=== PATIENT | male | born 1960 | race Caucasian/White ===

== ENCOUNTER 2019-01-24 22:52 | Emergency (ER) | payer OTHER ==
[~2019-01-24] VITALS: Ht 175.3 cm; Wt 91.0 kg
[2019-01-25 01:11] LABS: HEMATOCRIT 44.8 % (39.0-50.0); HEMOGLOBIN 15.6 g/dl (14.0-18.0); IMMATURE GRANULOCYTES 0.5 % (0.0-5.0); MEAN CELL VOLUME 100.9 fL CALC (80.0-100.0); MEAN CORPUSCULAR HGB 35.1 pG CALC (26.0-32.0); MEAN CORPUSCULAR HGB CONC 34.8 g/L CALC (32.0-36.0); NEUT# 5.74 thou/uL (1.82-7.42); RED BLOOD COUNT 4.44 mill/uL (4.70-6.10); RED CELL DISTRI WIDTH 14.7 % (11.5-15.5)
[2019-01-25 01:33] LABS: ALBUMIN 4.7 g/dL (3.2-5.0); ALKALINE PHOSPHATASE 166 u/l (38-126); ANION GAP 16 (6-22 (CALC)); BILIRUBIN, TOTAL 1.4 mg/dL (0.0-1.4); BUN 17 mg/dL (9-20); BUN/CREATININE RATIO 23 (12-20 (CALC)); CARBON DIOXIDE 26 mmol/l (22-30); CHLORIDE 100 mmol/l (95-108); CREATININE 0.7 mg/dL (0.7-1.3); GFR > 60 ML/MIN (>=60 (CALC)); GFR FOR AFR.AMER. > 60 ML/MIN (>=60 (CALC)); MAGNESIUM 1.1 mg/dL (1.6-2.3); POTASSIUM 3.9 mmol/l (3.5-5.1); SGOT/AST 117 u/l (17-59); SODIUM 138 mmol/l (137-146)
[2019-01-25 01:44] LABS: MYOGLOBIN 51 ng/mL (0 - 121)
[2019-01-25 02:03] LABS: TSH, 3RD GENERATION 1.38 uIU/mL (0.47 - 4.68)
[2019-01-25 02:32] VITALS: BP 140/100
== END 2019-01-25 02:35 | disposition home or self-care (01) | DRG 93 ==
LOC: ED 22:52
PROVIDERS: Family Medicine
DX: R25.9 Unspecified abnormal involuntary movements (principal); R42 Dizziness and giddiness; R06.00 Dyspnea, unspecified; T49.6X5A Adverse effect of otorhinolaryngological drugs and preparations, initial encounter; I10 Essential (primary) hypertension; F17.210 Nicotine dependence, cigarettes, uncomplicated

== ENCOUNTER 2019-02-23 13:36 | Emergency (ER) | payer SELFPAY ==
[~2019-02-23] VITALS: Ht 175.3 cm; Wt 95.0 kg
[2019-02-23 14:16] LABS: HEMATOCRIT 40.9 % (39.0-50.0); HEMOGLOBIN 15.7 g/dl (14.0-18.0); IMMATURE GRANULOCYTES 0.3 % (0.0-5.0); MEAN CELL VOLUME 100.7 fL CALC (80.0-100.0); MEAN CORPUSCULAR HGB 38.7 pG CALC (26.0-32.0); MEAN CORPUSCULAR HGB CONC 38.4 g/L CALC (32.0-36.0); NEUT# 3.13 thou/uL (1.82-7.42); RED BLOOD COUNT 4.06 mill/uL (4.70-6.10); RED CELL DISTRI WIDTH 15.1 % (11.5-15.5)
[2019-02-23 14:30] LABS: BILIRUBIN, TOTAL 1.3 mg/dL (0.0-1.4); BUN 16 mg/dL (9-20); BUN/CREATININE RATIO 21 (12-20 (CALC)); CHLORIDE 105 mmol/l (95-108); CREATININE 0.7 mg/dL (0.7-1.3); GFR > 60 ML/MIN (>=60 (CALC)); GFR FOR AFR.AMER. > 60 ML/MIN (>=60 (CALC)); LIPASE 103 u/l (23-300); POTASSIUM 4.5 mmol/l (3.5-5.1); SODIUM 138 mmol/l (137-146); TOTAL PROTEIN 7.1 g/dL (6.3-8.2)
[2019-02-23 14:33] LABS: ALBUMIN 3.6 g/dL (3.2-5.0); ALKALINE PHOSPHATASE 284 u/l (38-126); ANION GAP 19 (6-22 (CALC)); CARBON DIOXIDE 19 mmol/l (22-30); SGOT/AST 496 u/l (17-59)
[2019-02-23 15:59] LABS: URINE BILIRUBIN - DIPSTICK NEGATIVE (NEGATIVE); URINE BLOOD DIPSTICK NEGATIVE (NEGATIVE); URINE COLOR YELLOW; URINE GLUCOSE - DIPSTICK NEGATIVE (NEGATIVE); URINE KETONE NEGATIVE (NEGATIVE); URINE LEUK ESTERASE NEGATIVE (NEGATIVE); URINE NITRITE - DIPSTICK NEGATIVE (Negative); URINE PROTEIN - DIPSTICK NEGATIVE (NEG-TRACE); URINE UROBILINOGEN - DIPSTICK 0.2 E.U./dL (0.2)
[2019-02-23] MEDS ORDERED: ONDANSETRON4 MG PO (16:41)
[2019-02-23 16:49] VITALS: BP 160/107
[2019-02-23] MEDS ORDERED: ZPAK PO (16:49)
== END 2019-02-23 16:59 | disposition home or self-care (01) | DRG 153 ==
LOC: ED 13:36
PROVIDERS: Family Medicine
DX: J06.9 Acute upper respiratory infection, unspecified (principal); K52.9 Noninfective gastroenteritis and colitis, unspecified; R79.89 Other specified abnormal findings of blood chemistry; R19.5 Other fecal abnormalities; I10 Essential (primary) hypertension; F17.200 Nicotine dependence, unspecified, uncomplicated

== ENCOUNTER 2019-03-06 08:59 | Emergency (ER) | payer SELFPAY ==
[~2019-03-06] VITALS: Ht 175.3 cm; Wt 90.0 kg
[~2019-03-06 08:59] MED LIST: ONDANSETRON4 MG PO; ZPAK PO
[2019-03-06 10:30] LABS: ALBUMIN 3.1 g/dL (3.2-5.0); ANION GAP 22 (6-22 (CALC)); BUN 12 mg/dL (9-20); BUN/CREATININE RATIO 15 (12-20 (CALC)); CARBON DIOXIDE 19 mmol/l (22-30); CHLORIDE 99 mmol/l (95-108); CREATININE 0.8 mg/dL (0.7-1.3); ETHYL ALCOHOL 74 mg/dl (0-30); GFR > 60 ML/MIN (>=60 (CALC)); GFR FOR AFR.AMER. > 60 ML/MIN (>=60 (CALC)); POTASSIUM 3.7 mmol/l (3.5-5.1); SGOT/AST 339 u/l (17-59); SODIUM 136 mmol/l (137-146); TOTAL PROTEIN 6.4 g/dL (6.3-8.2)
[2019-03-06 10:37] LABS: ALKALINE PHOSPHATASE 700 u/l (38-126); BILIRUBIN, TOTAL 4.3 mg/dL (0.0-1.4); IMMATURE GRANULOCYTES 0.7 % (0.0-5.0); MEAN CELL VOLUME 101.2 fL CALC (80.0-100.0); MEAN CORPUSCULAR HGB 36.7 pG CALC (26.0-32.0); MEAN CORPUSCULAR HGB CONC 36.2 g/L CALC (32.0-36.0); NEUT# 5.24 thou/uL (1.82-7.42); RED BLOOD COUNT 3.3 mill/uL (4.70-6.10); RED CELL DISTRI WIDTH 15.9 % (11.5-15.5)
[2019-03-06 10:42] LABS: HEMATOCRIT 33.4 % (39.0-50.0); HEMOGLOBIN 12.1 g/dl (14.0-18.0)
[2019-03-06 13:44] LABS: URINE BLOOD DIPSTICK NEGATIVE (NEGATIVE); URINE GLUCOSE - DIPSTICK NEGATIVE (NEGATIVE); URINE KETONE 15 mg/dL (NEGATIVE); URINE LEUK ESTERASE NEGATIVE (NEGATIVE); URINE PROTEIN - DIPSTICK 30 mg/dL (NEG-TRACE); URINE SPECIFIC GRAVITY >=1.030
[2019-03-06 13:48] LABS: BARBITURATES NEGATIVE (NEGATIVE); COCAINE NEGATIVE (NEGATIVE); METHADONE NEGATIVE (NEGATIVE); OXCYCODONE NEGATIVE (NEGATIVE); TETRAHYDROCANNABIONOL NEGATIVE (NEGATIVE); TRICYLIC ANTIDEPRESSANTS NEGATIVE (NEGATIVE)
[2019-03-06 13:50] LABS: URINE BILIRUBIN - DIPSTICK LARGE (NEGATIVE); URINE NITRITE - DIPSTICK POSITIVE (Negative)
[2019-03-06 13:51] LABS: URINE COLOR AMBER
[2019-03-06 13:52] LABS: URINE BACTERIA RARE hpf; URINE RBC 0-2 RBC/hpf (0-5); URINE WBC 0-2 WBC/hpf (0-5)
[2019-03-06 18:15] VITALS: BP 138/66
== END 2019-03-06 18:15 | disposition short-term general hospital (02) | DRG 377 ==
LOC: ED 08:59 → ED-I 09:23 → ED 09:23 → ED-I 12:07 → ED 18:15
PROVIDERS: Emergency Medicine
DX: K92.2 Gastrointestinal hemorrhage, unspecified (principal); K85.90 Acute pancreatitis without necrosis or infection, unspecified; K70.30 Alcoholic cirrhosis of liver without ascites; F10.220 Alcohol dependence with intoxication, uncomplicated; Y90.3 Blood alcohol level of 60-79 mg/100 ml; D50.0 Iron deficiency anemia secondary to blood loss (chronic); T40.605A Adverse effect of unspecified narcotics, initial encounter; Y92.009 Unspecified place in unspecified non-institutional (private) residence as the place of occurrence of the external cause; R51 Headache
CPT/HCPCS: S0164

== ENCOUNTER 2019-11-02 | Emergency (ER) | payer MEDICAID ==
[2019-11-02 14:48] LABS: IMMATURE GRANULOCYTES 0.2 % (0.0-5.0); MEAN CORPUSCULAR HGB 33.3 pG CALC (26.0-32.0); MEAN CORPUSCULAR HGB CONC 35.2 g/L CALC (32.0-36.0); NEUT# 6.42 thou/uL (1.82-7.42); RED BLOOD COUNT 4.8 mill/uL (4.70-6.10); RED CELL DISTRI WIDTH 13.3 % (11.5-15.5)
[2019-11-02 14:51] LABS: HEMATOCRIT 45.4 % (39.0-50.0); MEAN CELL VOLUME 94.6 fL CALC (80.0-100.0)
[2019-11-02 15:25] LABS: ALBUMIN 4.3 g/dL (3.2-5.0); ALKALINE PHOSPHATASE 92 u/l (38-126); ANION GAP 15 (6-22 (CALC)); BILIRUBIN, TOTAL 0.5 mg/dL (0.0-1.4); BUN 17 mg/dL (9-20); BUN/CREATININE RATIO 24 (12-20 (CALC)); CARBON DIOXIDE 23 mmol/l (22-30); CHLORIDE 103 mmol/l (95-108); CREATININE 0.7 mg/dL (0.7-1.3); GFR > 60 ML/MIN (>=60 (CALC)); GFR FOR AFR.AMER. > 60 ML/MIN (>=60 (CALC)); LIPASE 39 u/l (23-300); POTASSIUM 4.3 mmol/l (3.5-5.1); SGOT/AST 36 u/l (17-59); SODIUM 137 mmol/l (137-146); TOTAL PROTEIN 7.6 g/dL (6.3-8.2)
[2019-11-02 16:19] LABS: TSH, 3RD GENERATION 1.27 uIU/mL (0.47 - 4.68)
[2019-11-02 16:22] LABS: URINE BILIRUBIN - DIPSTICK NEGATIVE (NEGATIVE); URINE BLOOD DIPSTICK NEGATIVE (NEGATIVE); URINE CLARITY CLEAR; URINE COLOR YELLOW; URINE GLUCOSE - DIPSTICK NEGATIVE (NEGATIVE); URINE KETONE NEGATIVE (NEGATIVE); URINE LEUK ESTERASE NEGATIVE (Negative); URINE NITRITE - DIPSTICK NEGATIVE (Negative); URINE PROTEIN - DIPSTICK TRACE mg/dL (NEG-TRACE); URINE UROBILINOGEN - DIPSTICK 0.2 E.U./dL (0.2)
[2019-11-02 16:23] LABS: BARBITURATES NEGATIVE (NEGATIVE); COCAINE NEGATIVE (NEGATIVE); METHADONE NEGATIVE (NEGATIVE); OXCYCODONE NEGATIVE (NEGATIVE); TETRAHYDROCANNABIONOL NEGATIVE (NEGATIVE); TRICYLIC ANTIDEPRESSANTS NEGATIVE (NEGATIVE)
[2019-11-02] MEDS ORDERED: ZOFRAN4 MG PO (18:29)
[2019-11-02] MEDS ORDERED: KLONOPIN1 MG PO (18:29)
== END 2019-11-02 18:50 | disposition home or self-care (01) ==
PROVIDERS: Emergency Medicine
DX: K52.9 Noninfective gastroenteritis and colitis, unspecified (principal); F41.9 Anxiety disorder, unspecified; I10 Essential (primary) hypertension; F17.210 Nicotine dependence, cigarettes, uncomplicated
CPT/HCPCS: J2060

== ENCOUNTER 2020-02-24 10:43 | Emergency (ER) | payer MEDICAID ==
[~2020-02-24 10:43] MED LIST changes: +KLONOPIN1 MG PO; +ZOFRAN4 MG PO
[2020-02-24] MEDS ORDERED: ZESTRIL10 M1 PO (11:20)
[2020-02-24] MEDS ORDERED: CRESTOR5 M1 PO (11:21)
[2020-02-24 12:07] LABS: URINE BLOOD DIPSTICK NEGATIVE (NEGATIVE); URINE COLOR YELLOW; URINE GLUCOSE - DIPSTICK NEGATIVE (NEGATIVE); URINE KETONE 15 mg/dL (NEGATIVE); URINE LEUK ESTERASE NEGATIVE (NEGATIVE); URINE PH 5.5 (4.5-8.0); URINE PROTEIN - DIPSTICK TRACE mg/dL (NEG-TRACE); URINE SPECIFIC GRAVITY >=1.030; URINE UROBILINOGEN - DIPSTICK 0.2 E.U./dL (0.2)
[2020-02-24 12:16] LABS: URINE BILIRUBIN - DIPSTICK MODERATE (NEGATIVE); URINE NITRITE - DIPSTICK POSITIVE (Negative)
[2020-02-24 12:18] LABS: HEMATOCRIT 41.1 % (39.0-50.0); HEMOGLOBIN 16.7 g/dl (14.0-18.0); IMMATURE GRANULOCYTES 0.5 % (0.0-5.0); MEAN CELL VOLUME 94.1 fL CALC (80.0-100.0); MEAN CORPUSCULAR HGB 38.2 pG CALC (26.0-32.0); MEAN CORPUSCULAR HGB CONC 40.6 g/dL CAL (32.0-36.0); NEUT# 6.61 thou/uL (1.82-7.42); RED BLOOD COUNT 4.37 mill/uL (4.70-6.10); RED CELL DISTRI WIDTH 16.9 % (11.5-15.5)
[2020-02-24 12:24] LABS: BUN 14 mg/dL (9-20); BUN/CREATININE RATIO 14 (12-20 (CALC)); CHLORIDE 97 mmol/l (95-108); GFR > 60 ML/MIN (>=60 (CALC)); GFR FOR AFR.AMER. > 60 ML/MIN (>=60 (CALC)); TOTAL PROTEIN 7.1 g/dL (6.3-8.2)
[2020-02-24 12:26] LABS: ALBUMIN 3.3 g/dL (3.2-5.0); ALKALINE PHOSPHATASE 326 u/l (38-126); ANION GAP 18 (6-22 (CALC)); BILIRUBIN, TOTAL 1.9 mg/dL (0.0-1.4); CARBON DIOXIDE 16 mmol/l (22-30); SGOT/AST 219 u/l (17-59); SODIUM 127 mmol/l (137-146)
[2020-02-24 12:38] LABS: URINE BACTERIA FEW hpf; URINE SQUAMOUS EPITHELIAL CELL FEW EPI/hpf (0-FEW)
[2020-02-24 14:40] LABS: AMYLASE 59 u/l (30-110); LIPASE 337 u/l (23-300)
[2020-02-24] MEDS ORDERED: ZOFRAN4 MG/TAB PO ×2 (15:00)
[2020-02-24] MEDS ORDERED: DICYCLOMINE10 MG PO ×2 (15:00)
[2020-02-24] MEDS ORDERED: CRESTOR5 MG PO ×2 (15:09)
[2020-02-24 15:18] VITALS: BP 135/79
== END 2020-02-24 15:28 | disposition home or self-care (01) ==
LOC: ED 10:43
PROVIDERS: Student in an Organized Health Care Education/Training Program
DX: R10.31 Right lower quadrant pain (principal); R10.32 Left lower quadrant pain; R74.0 Nonspecific elevation of levels of transaminase and lactic acid dehydrogenase [LDH]; E78.5 Hyperlipidemia, unspecified; I10 Essential (primary) hypertension; F17.210 Nicotine dependence, cigarettes, uncomplicated; T46.6X6A Underdosing of antihyperlipidemic and antiarteriosclerotic drugs, initial encounter; Z91.128 Patient's intentional underdosing of medication regimen for other reason; Z20.828 Contact with and (suspected) exposure to other viral communicable diseases
CPT/HCPCS: Q9967

== ENCOUNTER 2020-03-13 13:15 | Emergency (ER) | payer MEDICAID ==
[~2020-03-13] VITALS: Ht 175.3 cm; Wt 92.0 kg
[~2020-03-13 13:15] MED LIST changes: +CRESTOR5 M1 PO; +CRESTOR5 MG PO; +DICYCLOMINE10 MG PO; +ZESTRIL10 M1 PO; +ZOFRAN4 MG/TAB PO
[2020-03-13 15:16] LABS: HEMOGLOBIN 15.8 g/dl (14.0-18.0); IMMATURE GRANULOCYTES 0.6 % (0.0-5.0); MEAN CELL VOLUME 96.6 fL CALC (80.0-100.0); MEAN CORPUSCULAR HGB 41.3 pG CALC (26.0-32.0); MEAN CORPUSCULAR HGB CONC 42.7 g/dL CAL (32.0-36.0); NEUT# 2.87 thou/uL (1.82-7.42); RED BLOOD COUNT 3.83 mill/uL (4.70-6.10); RED CELL DISTRI WIDTH 17.4 % (11.5-15.5)
[2020-03-13 15:32] LABS: ALKALINE PHOSPHATASE 466 u/l (38-126); ANION GAP 18 (6-22 (CALC)); BILIRUBIN, TOTAL 1.3 mg/dL (0.0-1.4); BUN 15 mg/dL (9-20); BUN/CREATININE RATIO 18 (12-20 (CALC)); CARBON DIOXIDE 15 mmol/l (22-30); CHLORIDE 103 mmol/l (95-108); CREATININE 0.9 mg/dL (0.7-1.3); GFR > 60 ML/MIN (>=60 (CALC)); GFR FOR AFR.AMER. > 60 ML/MIN (>=60 (CALC)); POTASSIUM 4.6 mmol/l (3.5-5.1); SGOT/AST 236 u/l (17-59); SODIUM 131 mmol/l (137-146); TOTAL PROTEIN 6.9 g/dL (6.3-8.2)
[2020-03-13 15:38] LABS: LIPASE 173 u/l (23-300)
[2020-03-13] MEDS ORDERED: PREDNISONE50 MG PO ×2 (17:42)
[2020-03-13] MEDS ORDERED: ZPAK PO (17:42)
[2020-03-13] MEDS ORDERED: PROAIR HFA108 MCG/AC PO ×2 (17:42)
[2020-03-13 18:00] VITALS: BP 139/79
== END 2020-03-13 18:40 | disposition home or self-care (01) ==
LOC: ED 13:15
PROVIDERS: Family Medicine
DX: J40 Bronchitis, not specified as acute or chronic (principal); I10 Essential (primary) hypertension; F17.210 Nicotine dependence, cigarettes, uncomplicated; Z20.828 Contact with and (suspected) exposure to other viral communicable diseases

== ENCOUNTER 2020-06-24 10:07 | Emergency (ER) | payer MEDICAID ==
[~2020-06-24] VITALS: Ht 175.3 cm; Wt 75.0 kg
[~2020-06-24 10:07] MED LIST changes: +PREDNISONE50 MG PO; +PROAIR HFA108 MCG/AC PO
[2020-06-24 10:42] LABS: HEMATOCRIT 42.4 % (39.0-50.0); HEMOGLOBIN 14.3 g/dl (14.0-18.0); MEAN CELL VOLUME 106.5 fL CALC (80.0-100.0); MEAN CORPUSCULAR HGB 35.9 pG CALC (26.0-32.0); MEAN CORPUSCULAR HGB CONC 33.7 g/dL CAL (32.0-36.0); NEUT# 6.4 thou/uL (1.82-7.42); RED BLOOD COUNT 3.98 mill/uL (4.70-6.10); RED CELL DISTRI WIDTH 13.8 % (11.5-15.5)
[2020-06-24 10:54] LABS: ALBUMIN 3.7 g/dL (3.2-5.0); ALKALINE PHOSPHATASE 277 u/l (38-126); ANION GAP 12 (6-22 (CALC)); BILIRUBIN, TOTAL 1.1 mg/dL (0.0-1.4); BUN 6 mg/dL (9-20); BUN/CREATININE RATIO 9 (12-20 (CALC)); CARBON DIOXIDE 29 mmol/l (22-30); CHLORIDE 97 mmol/l (95-108); CREATININE 0.8 mg/dL (0.7-1.3); GFR > 60 ML/MIN (>=60 (CALC)); GFR FOR AFR.AMER. > 60 ML/MIN (>=60 (CALC)); LIPASE 205 u/l (23-300); SGOT/AST 60 u/l (17-59); SODIUM 134 mmol/l (137-146); TOTAL PROTEIN 6.8 g/dL (6.3-8.2)
[2020-06-24 11:03] LABS: PROTHROMBIN TIME 10.3 SECONDS (9.0-12.5)
[2020-06-24 13:00] VITALS: BP 117/69
== END 2020-06-24 13:09 | disposition short-term general hospital (02) ==
LOC: ED 10:07
PROVIDERS: Student in an Organized Health Care Education/Training Program
DX: K65.1 Peritoneal abscess (principal); R07.9 Chest pain, unspecified; I10 Essential (primary) hypertension; F41.9 Anxiety disorder, unspecified; E78.00 Pure hypercholesterolemia, unspecified; F17.210 Nicotine dependence, cigarettes, uncomplicated
CPT/HCPCS: Q9967

== ENCOUNTER 2020-11-05 12:05 | Emergency (ER) | payer MEDICAID ==
[~2020-11-05] VITALS: Ht 175.3 cm; Wt 150.0 kg
[2020-11-05 14:52] LABS: IMMATURE GRANULOCYTES 0.5 % (0.0-5.0); MEAN CORPUSCULAR HGB 33.2 pG CALC (26.0-32.0); MEAN CORPUSCULAR HGB CONC 33.6 g/dL CAL (32.0-36.0); NEUT# 10.8 thou/uL (1.82-7.42); RED BLOOD COUNT 4.97 mill/uL (4.70-6.10); RED CELL DISTRI WIDTH 14.6 % (11.5-15.5)
[2020-11-05 14:53] LABS: HEMATOCRIT 49.1 % (39.0-50.0); HEMOGLOBIN 16.5 g/dl (14.0-18.0); MEAN CELL VOLUME 98.8 fL CALC (80.0-100.0)
[2020-11-05 15:14] LABS: ALBUMIN 4.1 g/dL (3.2-5.0); ANION GAP 11 (6-22 (CALC)); BILIRUBIN, TOTAL 1.5 mg/dL (0.0-1.4); BUN 8 mg/dL (9-20); BUN/CREATININE RATIO 11 (12-20 (CALC)); CARBON DIOXIDE 29 mmol/l (22-30); CHLORIDE 96 mmol/l (95-108); CREATININE 0.8 mg/dL (0.7-1.3); GFR > 60 ML/MIN (>=60 (CALC)); GFR FOR AFR.AMER. > 60 ML/MIN (>=60 (CALC)); POTASSIUM 3.9 mmol/l (3.5-5.1); SGOT/AST 38 u/l (17-59); SODIUM 132 mmol/l (137-146); TOTAL PROTEIN 7.6 g/dL (6.3-8.2)
[2020-11-05 15:17] LABS: ALKALINE PHOSPHATASE 102 u/l (38-126)
[2020-11-05] MEDS ORDERED: HYDROCO/APAP1 TA9 PO (17:08)
[2020-11-05] MEDS ORDERED: MOTRIN400 MG/TAB PO (17:08)
[2020-11-05] MEDS ORDERED: ZOFRAN4 M1 PO (17:08)
[2020-11-05 17:40] VITALS: BP 131/78
== END 2020-11-05 17:49 | disposition left against medical advice (07) ==
LOC: ED 12:05
PROVIDERS: Family Medicine
DX: R07.9 Chest pain, unspecified (principal); R10.12 Left upper quadrant pain; R10.13 Epigastric pain; I10 Essential (primary) hypertension; F41.9 Anxiety disorder, unspecified; E78.00 Pure hypercholesterolemia, unspecified; F17.200 Nicotine dependence, unspecified, uncomplicated; Z91.19 Patient's noncompliance with other medical treatment and regimen; Z20.822 Contact with and (suspected) exposure to COVID-19
CPT/HCPCS: Q9967

== ENCOUNTER 2020-11-15 17:32 | Emergency (ER) | payer MEDICAID ==
[~2020-11-15] VITALS: Ht 175.3 cm; Wt 100.0 kg
[~2020-11-15 17:32] MED LIST changes: +HYDROCO/APAP1 TA9 PO; +MOTRIN400 MG/TAB PO; +ZOFRAN4 M1 PO
[2020-11-15 19:04] LABS: HEMATOCRIT 47.2 % (39.0-50.0); IMMATURE GRANULOCYTES 0.5 % (0.0-5.0); MEAN CELL VOLUME 99.2 fL CALC (80.0-100.0); MEAN CORPUSCULAR HGB 33.6 pG CALC (26.0-32.0); MEAN CORPUSCULAR HGB CONC 33.9 g/dL CAL (32.0-36.0); NEUT# 10.22 thou/uL (1.82-7.42); RED BLOOD COUNT 4.76 mill/uL (4.70-6.10); RED CELL DISTRI WIDTH 14.2 % (11.5-15.5)
[2020-11-15 19:16] LABS: ALBUMIN 3.8 g/dL (3.2-5.0); ALKALINE PHOSPHATASE 101 u/l (38-126); AMYLASE 92 u/l (30-110); ANION GAP 10 (6-22 (CALC)); BUN 7 mg/dL (9-20); BUN/CREATININE RATIO 12 (12-20 (CALC)); CARBON DIOXIDE 30 mmol/l (22-30); CHLORIDE 97 mmol/l (95-108); CREATININE 0.6 mg/dL (0.7-1.3); GFR > 60 ML/MIN (>=60 (CALC)); GFR FOR AFR.AMER. > 60 ML/MIN (>=60 (CALC)); LIPASE 559 u/l (23-300); POTASSIUM 3.4 mmol/l (3.5-5.1); SGOT/AST 33 u/l (17-59); SODIUM 134 mmol/l (137-146); TOTAL PROTEIN 7.1 g/dL (6.3-8.2)
[2020-11-15 19:29] LABS: BILIRUBIN, TOTAL 0.8 mg/dL (0.0-1.4)
[2020-11-15] MEDS ORDERED: LORTAB5 PO (21:09)
[2020-11-15] MEDS ORDERED: PROTONIX40 M2 PO (21:09)
[2020-11-15 21:25] VITALS: BP 148/80
== END 2020-11-15 21:25 | disposition home or self-care (01) ==
LOC: ED 17:32
PROVIDERS: Student in an Organized Health Care Education/Training Program
DX: K85.90 Acute pancreatitis without necrosis or infection, unspecified (principal); K29.70 Gastritis, unspecified, without bleeding; I10 Essential (primary) hypertension; F41.9 Anxiety disorder, unspecified; E78.00 Pure hypercholesterolemia, unspecified; F17.200 Nicotine dependence, unspecified, uncomplicated
CPT/HCPCS: Q9967; S0164

== ENCOUNTER 2020-12-31 12:06 | Emergency (ER) | payer MEDICAID ==
[~2020-12-31 12:06] MED LIST changes: +LORTAB5 PO; +PROTONIX40 M2 PO
[2020-12-31 12:55] LABS: HEMATOCRIT 44.7 % (39.0-50.0); HEMOGLOBIN 15.1 g/dl (14.0-18.0); IMMATURE GRANULOCYTES 0.6 % (0.0-5.0); MEAN CORPUSCULAR HGB 34.8 pG CALC (26.0-32.0); MEAN CORPUSCULAR HGB CONC 33.8 g/dL CAL (32.0-36.0); NEUT# 5.54 thou/uL (1.82-7.42); RED BLOOD COUNT 4.34 mill/uL (4.70-6.10); RED CELL DISTRI WIDTH 17.1 % (11.5-15.5)
[2020-12-31 13:16] LABS: ALBUMIN 4.2 g/dL (3.2-5.0); ALKALINE PHOSPHATASE 135 u/l (38-126); ANION GAP 16 (6-22 (CALC)); BILIRUBIN, TOTAL 1.1 mg/dL (0.0-1.4); BUN 8 mg/dL (9-20); BUN/CREATININE RATIO 10 (12-20 (CALC)); CARBON DIOXIDE 25 mmol/l (22-30); CHLORIDE 100 mmol/l (95-108); CREATININE 0.8 mg/dL (0.7-1.3); GFR > 60 ML/MIN (>=60 (CALC)); GFR FOR AFR.AMER. > 60 ML/MIN (>=60 (CALC)); POTASSIUM 3.8 mmol/l (3.5-5.1); SODIUM 137 mmol/l (137-146); TOTAL PROTEIN 7.5 g/dL (6.3-8.2)
[2020-12-31 13:17] LABS: SGOT/AST 101 u/l (17-59)
[2020-12-31 13:57] LABS: URINE BILIRUBIN - DIPSTICK NEGATIVE (NEGATIVE); URINE BLOOD DIPSTICK NEGATIVE (NEGATIVE); URINE COLOR YELLOW; URINE GLUCOSE - DIPSTICK NEGATIVE (NEGATIVE); URINE KETONE 15 mg/dL (NEGATIVE); URINE LEUK ESTERASE NEGATIVE (NEGATIVE); URINE NITRITE - DIPSTICK NEGATIVE (Negative); URINE PROTEIN - DIPSTICK NEGATIVE (NEG-TRACE); URINE SPECIFIC GRAVITY 1.025; URINE UROBILINOGEN - DIPSTICK 0.2 E.U./dL (0.2)
[2020-12-31] MEDS ORDERED: ZOFRAN4 MG/TAB PO (14:41)
[2020-12-31] MEDS ORDERED: ATIVAN0.5 MG PO (17:22)
[2020-12-31] MEDS ORDERED: ERYTHROMYCIN O3.5 GM IO (17:22)
[2020-12-31 17:39] VITALS: BP 168/93
== END 2020-12-31 17:52 | disposition home or self-care (01) ==
LOC: ED 12:06
PROVIDERS: Emergency Medicine
DX: J06.9 Acute upper respiratory infection, unspecified (principal); R11.2 Nausea with vomiting, unspecified; S05.01XA Injury of conjunctiva and corneal abrasion without foreign body, right eye, initial encounter; R25.3 Fasciculation; I10 Essential (primary) hypertension; F41.9 Anxiety disorder, unspecified; E78.00 Pure hypercholesterolemia, unspecified; F17.210 Nicotine dependence, cigarettes, uncomplicated; X58.XXXA Exposure to other specified factors, initial encounter; Z20.822 Contact with and (suspected) exposure to COVID-19
CPT/HCPCS: J2060

== ENCOUNTER 2021-01-08 | Observation (INO) | payer MEDICAID ==
[2021-01-08] VITALS (9 sets, daily range): BP systolic 83–177; BP diastolic 46–82
[~2021-01-08] MED LIST changes: +ATIVAN0.5 MG PO; +ERYTHROMYCIN O3.5 GM IO
[2021-01-08] MEDS ORDERED: CELECOXIB200 MG PO (12:07)
[2021-01-08] MEDS ORDERED: ZITHROMAX250 MG PO (12:09)
[2021-01-08] MEDS ORDERED: PROAIR HFA108 MCG/AC (12:10)
[2021-01-08] MEDS ORDERED: ALBUTEROL SUL0.083 % IN (12:11)
[2021-01-08] MEDS ORDERED: OMEPRAZOLE DR40 MG PO (12:12)
[2021-01-08 12:24] LABS: HEMATOCRIT 44.5 % (39.0-50.0); HEMOGLOBIN 15.6 g/dl (14.0-18.0); IMMATURE GRANULOCYTES 0.5 % (0.0-5.0); MEAN CELL VOLUME 101.6 fL CALC (80.0-100.0); MEAN CORPUSCULAR HGB 35.6 pG CALC (26.0-32.0); MEAN CORPUSCULAR HGB CONC 35.1 g/dL CAL (32.0-36.0); NEUT# 5.51 thou/uL (1.82-7.42); RED BLOOD COUNT 4.38 mill/uL (4.70-6.10); RED CELL DISTRI WIDTH 17.4 % (11.5-15.5)
[2021-01-08 12:37] LABS: ALBUMIN 4.8 g/dL (3.2-5.0); ALKALINE PHOSPHATASE 123 u/l (38-126); AMYLASE 47 u/l (30-110); ANION GAP 22 (6-22 (CALC)); BILIRUBIN, TOTAL 1.5 mg/dL (0.0-1.4); BUN 14 mg/dL (9-20); BUN/CREATININE RATIO 10 (12-20 (CALC)); CARBON DIOXIDE 21 mmol/l (22-30); CHLORIDE 90 mmol/l (95-108); CREATININE 1.4 mg/dL (0.7-1.3); ETHYL ALCOHOL 43 mg/dl (0-30); GFR 52 ML/MIN (>=60 (CALC)); GFR FOR AFR.AMER. > 60 ML/MIN (>=60 (CALC)); INTERNATIONAL NORMALIZED RATIO 1.1 RATIO (0.7-1.3); LIPASE 72 u/l (23-300); POTASSIUM 3.8 mmol/l (3.5-5.1); SGOT/AST 94 u/l (17-59); TOTAL PROTEIN 8.4 g/dL (6.3-8.2)
[2021-01-08 12:38] LABS: SODIUM 129 mmol/l (137-146)
[2021-01-08 14:22] LABS: URINE COLOR YELLOW; URINE GLUCOSE - DIPSTICK NEGATIVE (NEGATIVE); URINE KETONE 40 mg/dL (NEGATIVE); URINE LEUK ESTERASE NEGATIVE (NEGATIVE); URINE PH 5.5 (4.5-8.0); URINE PROTEIN - DIPSTICK TRACE mg/dL (NEG-TRACE)
[2021-01-08 14:29] LABS: URINE BILIRUBIN - DIPSTICK NEGATIVE (NEGATIVE); URINE NITRITE - DIPSTICK NEGATIVE (Negative)
[2021-01-08 14:30] LABS: URINE BLOOD DIPSTICK NEGATIVE (NEGATIVE)
[2021-01-08] MEDS ORDERED: HYDROCODONE BIT10 MG PO (18:04)
[2021-01-09] VITALS (9 sets, daily range): BP systolic 90–139; BP diastolic 51–83
[2021-01-09 06:27] LABS: IMMATURE GRANULOCYTES 0.3 % (0.0-5.0); MEAN CELL VOLUME 104.4 fL CALC (80.0-100.0); MEAN CORPUSCULAR HGB 35.5 pG CALC (26.0-32.0); NEUT# 6.33 thou/uL (1.82-7.42); RED BLOOD COUNT 3.83 mill/uL (4.70-6.10); RED CELL DISTRI WIDTH 17.6 % (11.5-15.5)
[2021-01-09 06:28] LABS: HEMOGLOBIN 13.6 g/dl (14.0-18.0)
[2021-01-09 06:41] LABS: ALKALINE PHOSPHATASE 103 u/l (38-126); BILIRUBIN, TOTAL 1.3 mg/dL (0.0-1.4); BUN 18 mg/dL (9-20); BUN/CREATININE RATIO 22 (12-20 (CALC)); CALCULATED LDLCHOLESTEROL 100 mg/dL (62-129 (CALC)); CARBON DIOXIDE 24 mmol/l (22-30); CHLORIDE 98 mmol/l (95-108); CHOLESTEROL HDL RATIO 2.2 (<4.4 (CALC)); CREATININE 0.8 mg/dL (0.7-1.3); GFR > 60 ML/MIN (>=60 (CALC)); GFR FOR AFR.AMER. > 60 ML/MIN (>=60 (CALC)); HDL CHOLESTEROL 102 mg/dL (>=40); SGOT/AST 75 u/l (17-59); SODIUM 130 mmol/l (137-146); TOTAL CHOLESTEROL 222 mg/dl (0-199); TOTAL TRIGLYCERIDES 102 mg/dl (30-149); VLDL CHOLESTROL 20 mg/dl (8-62 (CALC))
[2021-01-09 06:47] LABS: ALBUMIN 3.7 g/dL (3.2-5.0); ANION GAP 13 (6-22 (CALC)); MAGNESIUM 1.4 mg/dL (1.6-2.3); POTASSIUM 4.9 mmol/l (3.5-5.1); TOTAL PROTEIN 6.5 g/dL (6.3-8.2)
[2021-01-10] VITALS (7 sets, daily range): BP systolic 90–144; BP diastolic 46–105
[2021-01-10 05:47] LABS: ANION GAP 10 (6-22 (CALC)); BUN 19 mg/dL (9-20); BUN/CREATININE RATIO 27 (12-20 (CALC)); CARBON DIOXIDE 26 mmol/l (22-30); CHLORIDE 100 mmol/l (95-108); CREATININE 0.7 mg/dL (0.7-1.3); GFR > 60 ML/MIN (>=60 (CALC)); GFR FOR AFR.AMER. > 60 ML/MIN (>=60 (CALC)); POTASSIUM 4.6 mmol/l (3.5-5.1); SODIUM 132 mmol/l (137-146)
[2021-01-10 05:48] LABS: MAGNESIUM 1.8 mg/dL (1.6-2.3)
[2021-01-10] MEDS ORDERED: LISINOPRIL20 M1 PO (10:29)
[2021-01-10] MEDS ORDERED: LIBRIUM10 M1 PO (10:31)
== END 2021-01-10 12:45 | disposition home or self-care (01) ==
PROVIDERS: Nurse Practitioner; ADMIT Internal Medicine
DX: F10.131 Alcohol abuse with withdrawal delirium (principal); R07.9 Chest pain, unspecified; J44.9 Chronic obstructive pulmonary disease, unspecified; I10 Essential (primary) hypertension; E78.5 Hyperlipidemia, unspecified; K21.9 Gastro-esophageal reflux disease without esophagitis; M25.562 Pain in left knee; M25.561 Pain in right knee; F41.1 Generalized anxiety disorder; G47.00 Insomnia, unspecified; G47.30 Sleep apnea, unspecified; F17.210 Nicotine dependence, cigarettes, uncomplicated; Y90.2 Blood alcohol level of 40-59 mg/100 ml; Z23 Encounter for immunization; Z20.822 Contact with and (suspected) exposure to COVID-19
CPT/HCPCS: J1650; J2060; J3475

== ENCOUNTER 2022-03-10 13:35 | Emergency (ER) | payer MEDICARE, OTHER ==
[2022-03-10] VITALS (11 sets, daily range): BP systolic 112–166; BP diastolic 71–111
[~2022-03-10] VITALS: Ht 175.3 cm; Wt 108.4 kg
[~2022-03-10 13:35] MED LIST changes: +ALBUTEROL SUL0.083 % IN; +CELECOXIB200 MG PO; +HYDROCODONE BIT10 MG PO; +LIBRIUM10 M1 PO; +LISINOPRIL20 M1 PO; +OMEPRAZOLE DR40 MG PO; +PROAIR HFA108 MCG/AC; +ZITHROMAX250 MG PO
[2022-03-10 14:13] LABS: HEMATOCRIT 41.6 % (39.0-50.0); HEMOGLOBIN 14.1 g/dl (14.0-18.0); IMMATURE GRANULOCYTES 0.3 % (0.0-5.0); MEAN CELL VOLUME 104.8 fL CALC (80.0-100.0); MEAN CORPUSCULAR HGB 35.5 pG CALC (26.0-32.0); MEAN CORPUSCULAR HGB CONC 33.9 g/dL CAL (32.0-36.0); NEUT# 4.04 thou/uL (1.82-7.42); RED BLOOD COUNT 3.97 mill/uL (4.70-6.10); RED CELL DISTRI WIDTH 16.1 % (11.5-15.5)
[2022-03-10 15:02] LABS: ALBUMIN 4.3 g/dL (3.2-5.0); ALKALINE PHOSPHATASE 144 u/l (38-126); BUN 11 mg/dL (9-20); BUN/CREATININE RATIO 13 (12-20 (CALC)); CHLORIDE 106 mmol/l (95-108); CREATININE 0.8 mg/dL (0.7-1.3); GFR FOR AFR.AMER. > 60 ML/MIN (>=60 (CALC)); GFR OTHER RACES > 60 ML/MIN (>=60 (CALC)); POTASSIUM 4.2 mmol/l (3.5-5.1); SGOT/AST 99 u/l (17-59); SODIUM 136 mmol/l (137-146); TOTAL PROTEIN 7.6 g/dL (6.3-8.2)
[2022-03-10 15:05] LABS: ANION GAP 15 (6-22 (CALC)); BILIRUBIN, TOTAL 0.6 mg/dL (0.0-1.4); CARBON DIOXIDE 19 mmol/l (22-30)
== END 2022-03-10 17:49 | disposition home or self-care (01) ==
LOC: ED 13:35
PROVIDERS: Family Medicine
DX: R07.9 Chest pain, unspecified (principal); I10 Essential (primary) hypertension; F41.9 Anxiety disorder, unspecified; J45.909 Unspecified asthma, uncomplicated; E78.00 Pure hypercholesterolemia, unspecified; F17.200 Nicotine dependence, unspecified, uncomplicated

== ENCOUNTER 2023-06-03 11:51 | Emergency (ER) | payer MEDICARE ==
[~2023-06-03] VITALS: Ht 175.3 cm; Wt 108.8 kg
[2023-06-03] VITALS (26 sets, daily range): BP systolic 79–126; BP diastolic 52–87
[2023-06-03 12:34] LABS: BASO% 0.6 % (0-3); EOS% 1.2 % (0-8); IMMATURE GRANULOCYTES 1.5 % (0.0-5.0); LYMPH% 14.8 % (15-41); MEAN CELL VOLUME 108.1 fL CALC (80.0-100.0); MEAN CORPUSCULAR HGB 38.2 pG CALC (26.0-32.0); MEAN CORPUSCULAR HGB CONC 35.3 g/dL CAL (32.0-36.0); MONO% 6.5 % (2-13); NEUT# 8.32 thou/uL (1.82-7.42); NEUT% 75.4 % (42-76); RED BLOOD COUNT 2.83 mill/uL (4.70-6.10); RED CELL DISTRI WIDTH 19.4 % (11.5-15.5)
[2023-06-03 12:36] LABS: ALBUMIN 3.6 g/dL (3.2-5.0); BUN 12 mg/dL (8-23); BUN/CREATININE RATIO 15 (12-20 (CALC)); CARBON DIOXIDE 21 mmol/l (22-30); CHLORIDE 98 mmol/l (95-108); CREATININE 0.8 mg/dL (0.7-1.3); GFR FOR AFR.AMER. > 60 ML/MIN (>=60 (CALC)); GFR OTHER RACES > 60 ML/MIN (>=60 (CALC)); POTASSIUM 4.6 mmol/l (3.5-5.1); TOTAL PROTEIN 7.8 g/dL (6.3-8.2)
[2023-06-03 12:45] LABS: ANION GAP 15 (6-22 (CALC)); SODIUM 129 mmol/l (137-146)
[2023-06-03 12:46] LABS: ALKALINE PHOSPHATASE 362 u/l (38-126); BILIRUBIN, TOTAL 19.1 mg/dL (0.2-1.3); SGOT/AST 208 u/l (19-48)
[2023-06-03 12:52] LABS: HEMATOCRIT 30.6 % (39.0-50.0); HEMOGLOBIN 10.8 g/dl (14.0-18.0)
[2023-06-03 13:14] LABS: URINE BLOOD DIPSTICK Negative (NEGATIVE); URINE GLUCOSE - DIPSTICK 100 mg/dL (NEGATIVE); URINE KETONE 80 mg/dL (NEGATIVE); URINE PROTEIN - DIPSTICK 100 mg/dL (NEG-TRACE); URINE SPECIFIC GRAVITY 1.015; URINE UROBILINOGEN - DIPSTICK >=8.0 E.U./dL (0.2)
[2023-06-03 13:15] LABS: URINE COLOR Amber
[2023-06-03 13:16] LABS: URINE LEUK ESTERASE Large (NEGATIVE); URINE NITRITE - DIPSTICK Positive (Negative)
[2023-06-03 13:27] LABS: URINE BACTERIA FEW hpf; URINE SQUAMOUS EPITHELIAL CELL FEW EPI/hpf (0-FEW); URINE WBC 0-2 WBC/hpf (0-5)
[2023-06-03 13:29] LABS: URINE RENAL EPITHELIAL CELLS FEW hpf; URINE TRANSITIONAL EPI. CELLS FEW hpf
[2023-06-03] MEDS ORDERED: LISINOPRIL20 M1 PO (16:35)
== END 2023-06-03 17:11 | disposition short-term general hospital (02) ==
LOC: ED 11:51
PROVIDERS: Family Medicine
DX: E80.6 Other disorders of bilirubin metabolism (principal); R10.11 Right upper quadrant pain; I10 Essential (primary) hypertension; E78.5 Hyperlipidemia, unspecified; J44.9 Chronic obstructive pulmonary disease, unspecified; F17.200 Nicotine dependence, unspecified, uncomplicated; Z91.81 History of falling; Z20.822 Contact with and (suspected) exposure to COVID-19
CPT/HCPCS: Q9967

== ENCOUNTER 2023-06-20 13:40 | Emergency (ER) | payer MEDICARE ==
[2023-06-20] VITALS (11 sets, daily range): BP systolic 100–121; BP diastolic 64–81
[~2023-06-20] VITALS: Ht 175.3 cm; Wt 87.4 kg
[2023-06-20] MEDS ORDERED: MIDODRINE10 MG PO (14:12)
[2023-06-20 14:57] LABS: BASO% 0.8 % (0-3); HEMATOCRIT 31.3 % (39.0-50.0); HEMOGLOBIN 9.9 g/dl (14.0-18.0); LYMPH% 15.7 % (15-41); MEAN CORPUSCULAR HGB 38.2 pG CALC (26.0-32.0); MEAN CORPUSCULAR HGB CONC 31.6 g/dL CAL (32.0-36.0); MONO% 8.4 % (2-13); NEUT# 7.78 thou/uL (1.82-7.42); NEUT% 73.1 % (42-76); RED BLOOD COUNT 2.59 mill/uL (4.70-6.10); RED CELL DISTRI WIDTH 14.2 % (11.5-15.5)
[2023-06-20 15:00] LABS: MEAN CELL VOLUME 120.8 fL CALC (80.0-100.0)
[2023-06-20 15:10] LABS: ALKALINE PHOSPHATASE 207 u/l (38-126); BUN 10 mg/dL (8-23); BUN/CREATININE RATIO 15 (12-20 (CALC)); CARBON DIOXIDE 23 mmol/l (22-30); CHLORIDE 108 mmol/l (95-108); CREATININE 0.7 mg/dL (0.7-1.3); GFR FOR AFR.AMER. > 60 ML/MIN (>=60 (CALC)); GFR OTHER RACES > 60 ML/MIN (>=60 (CALC)); POTASSIUM 4.1 mmol/l (3.5-5.1); SGOT/AST 81 u/l (19-48); TOTAL PROTEIN 6.8 g/dL (6.3-8.2)
[2023-06-20 15:14] LABS: ANION GAP 9 (6-22 (CALC)); BILIRUBIN, TOTAL 4.7 mg/dL (0.2-1.3); SODIUM 136 mmol/l (137-146)
[2023-06-20] MEDS ORDERED: LASIX20 MG PO (15:58)
[2023-06-20] MEDS ORDERED: HYDROCO/APAP1 TA9 PO (15:58)
== END 2023-06-20 16:15 | disposition home or self-care (01) ==
LOC: ED 13:40
PROVIDERS: Family Medicine
DX: R60.0 Localized edema (principal); I10 Essential (primary) hypertension; F41.9 Anxiety disorder, unspecified; E78.00 Pure hypercholesterolemia, unspecified; J45.909 Unspecified asthma, uncomplicated; F17.200 Nicotine dependence, unspecified, uncomplicated

== ENCOUNTER 2024-04-07 11:56 | Emergency (ER) | payer MEDICARE, MEDICAID ==
[~2024-04-07] VITALS: Ht 175.3 cm; Wt 108.8 kg
[2024-04-07] VITALS (12 sets, daily range): BP systolic 110–140; BP diastolic 71–93
[~2024-04-07 11:56] MED LIST changes: +LASIX20 MG PO; +MIDODRINE10 MG PO
[2024-04-07] MEDS ORDERED: KETOROLAC TROMETHAMINE 15 MG/ML SDV IV ONE (12:15)
[2024-04-07 12:52] LABS: BASO% 0.7 % (0-3); EOS% 1.4 % (0-8); IMMATURE GRANULOCYTES 0.6 % (0.0-5.0); LYMPH% 7.8 % (15-41); MEAN CORPUSCULAR HGB 34.8 pG CALC (26.0-32.0); MEAN CORPUSCULAR HGB CONC 35.1 g/dL CAL (32.0-36.0); MONO% 8.9 % (2-13); NEUT# 9.79 thou/uL (1.82-7.42); NEUT% 80.6 % (42-76); RED BLOOD COUNT 4.57 mill/uL (4.70-6.10); RED CELL DISTRI WIDTH 14.9 % (11.5-15.5)
[2024-04-07 12:53] LABS: HEMATOCRIT 45.3 % (39.0-50.0); HEMOGLOBIN 15.9 g/dl (14.0-18.0); MEAN CELL VOLUME 99.1 fL CALC (80.0-100.0)
[2024-04-07 12:59] LABS: CREATININE 0.7 mg/dL (0.7-1.3); POTASSIUM 4.3 mmol/l (3.5-5.1)
[2024-04-07 13:03] LABS: ALBUMIN 4.1 g/dL (3.2-5.0); BILIRUBIN, TOTAL 0.9 mg/dL (0.2-1.3)
[2024-04-07] MEDS ORDERED: BACTRIM DS1 TAB PO (14:36)
[2024-04-07] MEDS ORDERED: HYDROCO/APAP1 TA9 PO (14:36)
== END 2024-04-07 14:52 | disposition home or self-care (01) ==
LOC: ED 11:56
PROVIDERS: Nurse Practitioner Family
DX: L03.211 Cellulitis of face (principal); L02.01 Cutaneous abscess of face; I10 Essential (primary) hypertension; F41.9 Anxiety disorder, unspecified; E78.00 Pure hypercholesterolemia, unspecified; J45.909 Unspecified asthma, uncomplicated; F17.200 Nicotine dependence, unspecified, uncomplicated; T46.4X6A Underdosing of angiotensin-converting-enzyme inhibitors, initial encounter; Z91.128 Patient's intentional underdosing of medication regimen for other reason
CPT/HCPCS: Q9967